=== PATIENT | male | born 1980 | race Caucasian/White ===

== ENCOUNTER 2021-08-23 10:34 | Emergency (ER) | payer OTHER ==
[~2021-08-23] VITALS: Ht 160 cm; Wt 61.2 kg
[2021-08-23] MEDS ORDERED: Zithromax250 MG PO (13:46)
[2021-08-23] MEDS ORDERED: BENZ100A PO (13:46)
== END 2021-08-23 13:47 | disposition home or self-care (01) ==
LOC: ER 10:34
DX: R05.9 Cough, unspecified (principal); F17.210 Nicotine dependence, cigarettes, uncomplicated
CPT/HCPCS: 71046; 99283-25